=== PATIENT | female | born 1975 | race Two or more races ===

== ENCOUNTER 2016-12-30 11:34 | Emergency (ER) | payer OTHER | END 2016-12-30 14:40 | disposition home or self-care (01) | LOC: CED 11:34 → CFTX 11:34 | DX: H10.33 Unspecified acute conjunctivitis, bilateral (principal); I10 Essential (primary) hypertension; Z88.0 Allergy status to penicillin | CPT/HCPCS: 99282 ==

== ENCOUNTER → 2017-03-28 | Outpatient (CLI) | payer OTHER ==
--- NOTE | ~2017-03-28 | MY29 ---
[facility] A Service [facility] RADIOLOGY TEXT RESULTS PATIENT: HEATHER ADAMS LOCATION: [facility] : 77 UNIT #: [id number] AGE: [address]: ANDREW PATRICK APRN SEX: F ORDER DR: [id number] [facility] [address] [place], [place] [address] [id number] O MR#: [id number] Acc #: [id number] NAME: HEATHER ADAMS : 1975 SEX: F STUDY DATE/TIME: 03/28/2017 9:07 UNIT: [facility] ROOM: STUDY DESCRIPTION: MY BALDEV SCREENING W/ CAD BILAT Attending Physician: Andrew Patrick Ordering Physician: Mc Patrick M.D. Primary Care Physician: Isaiah Becker M.D. MEDICAL IMAGING REPORT This report is preliminary unless electronic signature is present EXAM Bilateral Digital Screening Mammogram with CAD INDICATION Breast cancer screening. 41-year-old asymptomatic female. No personal or family history of breast cancer. COMPARISON None. Baseline exam. FINDINGS There are scattered fibroglandular tissues. No suspicious findings are present. IMPRESSION No mammographic evidence of malignancy. Annual screening mammography and clinical breast exam are recommended. A result letter will be sent to the patient. Patients over the age of 40 are entered into a reminder system with target due date for the next mammogram. BIRADS: 1 Negative Dictated by... Jad Hernandez M.D. THIS IS AN ELECTRONICALLY VERIFIED REPORT Jad Hernandez M.D. at 04/03/2017 9:50 PM BLM/bd [facility] A Service [facility] RADIOLOGY TEXT RESULTS PATIENT: HEATHER ADAMS LOCATION: [facility] : 77 UNIT #: [id number] AGE: [address]: ANDREW PATRICK APRN SEX: F ORDER DR: TD: 03/31/2017 11:27 JOB #: [id number] MEDICAL IMAGING REPORT Page 1 of 1 COPY
== END | disposition home or self-care (01) ==
LOC: CWCC 08:33
DX: Z12.31 Encounter for screening mammogram for malignant neoplasm of breast (principal)
CPT/HCPCS: G0202